=== PATIENT | female | born 1995 | race Caucasian/White ===

== ENCOUNTER 2020-09-14 10:37 | Emergency (ER) | payer OTHER, SELFPAY ==
[2020-09-14] VITALS (16 sets, daily range): BP systolic 100–125; BP diastolic 53–79; PULSE 73–93; RESP 18–28; TEMP 37; O2SAT 93–99
--- NOTE | ~2020-09-14 | XR_ITS ---
EXAMINATION: XR chest 2V DATE: 09/14/2020 10:49 INDICATION: Chest pain TECHNIQUE: PA and lateral views of the chest are obtained. COMPARISON: None available FINDINGS: The lungs are free of acute opacities. There is no pleural effusion or pneumothorax. The ca rdiomediastinal silhouette is normal. The visualized bones and soft tissues are unremarkable. IMPRESSION: 1. No acute cardiopulmonary abnormality. Reviewed, dictated and finalized at location B.
--- NOTE | 2020-09-14 10:39 | ECG_ITS ---
Measurements Intervals [place] Rate: 70 P: -1 MT: 134 QRS: -6 QRSD: 94 T: 17 QT: 390 QTc: 421 Interpretive Statements SINUS RHYTHM BORDERLINE R WAVE PROGRESSION, ANTERIOR LEADS CONSIDER INFERIOR INFARCT, AGE INDETERMINATE ABNORMAL ECG Electronically Signed On 09-14-2020 11:01:07 CDT by Cody Lewis D.O.
--- NOTE | 2020-09-14 10:51 | PC.NURSE ---
PT TAKEN TO XRAY PRIOR TO THE EKG WAS ABLE TO BE COMPLETED
[2020-09-14 11:15] LABS: Basophils Percent Auto 0.3 % (0.2-1.2); Eosinophils Absolute Auto 0.1 K/mm3 (0-0.3); Eosinophils Percent Auto 0.8 % (0-4.4); Hematocrit 38.6 % (37.0-47.0); Hemoglobin 12.1 g/dL (12.0-15.0); Immature Granulocyte Absolute 0.01 K/mm3 (0.00-0.031); Immature Granulocyte Percent A 0.2 % (0-0.5); Lymphocytes Absolute Auto 1.57 K/mm3 (0.9-3.2); Lymphocytes Percent Auto 25.3 % (18.3-44.2); Mean Corpuscular HGB Conc 31.3 g/dl (32-36); Mean Corpuscular Hemoglobin 26.7 pg (26-34); Mean Corpuscular Volume 85.2 fl (80-100); Monocytes Absolute Auto 0.5 K/mm3 (0.1-0.6); Monocytes Percent Auto 7.7 % (2.6-8.5); Neutrophils Absolute Auto 4.1 K/mm3 (1.3-6.7); Neutrophils Percent Auto 65.7 % (45.5-73.1); Platelet Count Result 280 k/mm3 (150-375); Red Blood Count 4.53 M/mm3 (4.2-5.4); Red Cell Distribution Width 13.7 % (11.5-14.5); White Blood Count 6.2 K/mm3 (4.5-10.0)
[2020-09-14 11:26] LABS: INR 0.9; Prothrombin Time 12.4 Seconds (11.1-14.7)
[2020-09-14 11:27] LABS: Anion Gap 8 mmol/L (8-16); Blood Urea Nitrogen 13 mg/dL (7-17); Calcium 9.3 mg/dL (8.4-10.2); Carbon Dioxide 27 mmol/L (22-30); Chloride 106 mmol/L (98-107); Estimated CRCL calculation 117 ml/min; Estimated Glomerular Filt Rate > 60; Glucose 108 mg/dL (65-110); Partial Thromboplastin Time 26.7 SECONDS (22.3-36.8); Potassium 4.3 mmol/L (3.4-5.0); Sodium 141 mmol/L (137-145)
[2020-09-14 11:39] LABS: Troponin I 0.014 ng/mL (0.000-0.034)
--- NOTE | 2020-09-14 12:34 | PC.NURSE ---
called lab and added on a D dimer talked to Brandy at [phone]
[2020-09-14] MEDS: LIDOCAINE HCL 2% VISC SOLN 15 ML UDC 20 ML PO (12:52)
[2020-09-14] MEDS: MAG HYDROX/AL HYDROX/SIMETH 30 ML UDC PO (12:52)
--- NOTE | 2020-09-14 13:07 | ED.GENADULT ---
HPI - General Adult General Chief complaint: Chest Pain Stated complaint: CHEST PAIN Time Seen by Provider: 09/14/20 11:12 Source: patient and RN notes reviewed Mode of arrival: ambulatory Limitations: no limitations History of Present Illness HPI narrative: Patient is a 25-year-old female who presents to emergency department for evaluation of left-sided chest discomfort worse with breathing that began in the early hours of the morning denies any URI symptoms notes yesterday she had felt fine denies any other complaints or symptoms or similar occurrence in the past patient does have a history of tobacco abuse and is currently on control which she has been on for 6 months. On arrival patient presents in no distress and is resting comfortably Related Data Allergies Allergy/AdvReac Type Severity Reaction Status Date / Time No Known Allergies Allergy Unverified 09/14/20 11:12 Review of Systems Review of Systems: All systems reviewed & are unremarkable except as noted in HPI and below PMFSH Family History Family History (Updated 09/23/15 @ 23:21 by DOCTOR UNKNOWN) Mother Family history of obesity Depression Hypertension Asthma Patient's mother is in good health Father Patient's father is in good health Sibling Patient's sister is in good health Patient's brother is in good health Other Diabetes mellitus Social History Social History Smoking status: Never smoker Alcohol intake: current Exam Narrative: Exam Narrative: GENERAL: Well-appearing, obese, and in no acute distress. HEAD: Normocephalic, atraumatic. EYES: PERRLA and EOMI. ENT: Nares clear, no rhinorrhea or epistaxis. Mucous membranes moist. CHEST: Clear to auscultation. No respiratory distress. No wheezes rales or rhonchi HEART: Regular rate and rhythm. No murmur heard. Normal peripheral pulses. ABDOMEN: Soft, nontender, nondistended EXTREMITIES: Normal range of motion. No edema. SKIN: Warm, dry, no rash. NEURO: No focal deficits. Alert and oriented x3. PSYCH: Normal mood and affect. Course Course Emergency Course: ABCs and vital signs intact and stable patient felt appropriate for outpatient reevaluation Vital Signs Vital signs: Vital Signs Temperature 98.6 F 09/14/20 11:09 Pulse Rate 80 09/14/20 11:09 Respiratory Rate 18 09/14/20 11:09 Blood Pressure 116/53 L 09/14/20 11:09 Pulse Oximetry 96 09/14/20 11:09 Temperature 98.6 F 09/14/20 11:09 Pulse Rate 80 09/14/20 12:50 Respiratory Rate 28 H 09/14/20 12:50 Blood Pressure 100/66 09/14/20 12:31 Pulse Oximetry 96 09/14/20 12:50 Medical Decision Making MDM Narrative Medical decision making narrative: Patients EKGs and labs are without significant high risk changes. Cardiac risk factors were reviewed. Patient is felt likely to be low risk for ACS and reasonable for further risk stratification testing as an outpatient. Pain was not sudden or maximal in onset without tearing or ripping. quality. No other signs or symptoms to suggest aortic dissection. A low-risk Wells criteria is noted. PE is felt to be unlikely. No pneumonia or URI symptoms were seen on evaluation today. Patient is felt to b reasonable for continued evaluation as an outpatient. Vital Signs Vital Signs: Vital Signs Temperature 98.6 F 09/14/20 11:09 Pulse Rate 80 09/14/20 11:09 Respiratory Rate 18 09/14/20 11:09 Blood Pressure 116/53 L 09/14/20 11:09 Pulse Oximetry 96 09/14/20 11:09 Temperature 98.6 F 09/14/20 11:09 Pulse Rate 80 09/14/20 12:50 Respiratory Rate 28 H 09/14/20 12:50 Blood Pressure 100/66 09/14/20 12:31 Pulse Oximetry 96 09/14/20 12:50 Lab Data Result diagrams: 09/14/20 11:05 09/14/20 11:05 Labs: Lab Results 09/14/20 09/14/20 09/14/20 Range/Units 11:05 11:05 11:05 WBC 6.2 (4.5-10.0) K/mm3 RBC 4.53 (4.2-5.4) M/mm3 Hgb
[2020-09-14 13:11] LABS: D Dimer 0.27 ug/mL (<0.48)
== END 2020-09-14 13:42 | disposition home or self-care (01) ==
PROVIDERS: Emergency Medicine Emergency Medical Services; Emergency Provider Emergency Medicine
DX: R07.9 Chest pain, unspecified (principal)
CPT/HCPCS: 36415; 71046; 80048; 84484; 85025; 85380; 85610; 85730; 93005; 96365; 99284; A9270; J0131

== ENCOUNTER 2020-11-08 13:00 | Emergency (ER) | payer OTHER, SELFPAY ==
[2020-11-08 13:10] VITALS: BP 124/84; PULSE 86; RESP 20; TEMP 37.2; O2SAT 98
--- NOTE | 2020-11-08 14:02 | ED.URI ---
HPI - URI/Sore Throat General Chief Complaint: Upper Respiratory Infection Stated Complaint: fever cough aches no smell or taste Time Seen by Provider: 11/08/20 13:45 Source: patient and RN notes reviewed Mode of arrival: ambulatory Limitations: no limitations History of Present Illness HPI Narrative: 25 year old female who presents to express care with complaints since Saturday diarrhea, fever, loss of taste and smell, body aches, chills and sore throat. Patient denies any acute shortness of breath, respirations are even and unlabored with SaO2 98%. She reports that the last day she worked was on Saturday.She works at [employer] but states she thinks that she may of been exposed to Covid by family member. Patient has not been vaccinated for COVID. MD elicited complaint: cough and sore throat Consistency: progressively worsening Description of mucous: clear Able to tolerate fluids by mouth: Yes Related Data Home Medications Medication Instructions Recorded Confirmed desogestrel-ethinyl estradiol tablet 11/08/20 11/08/20 [Apri] Allergies Allergy/AdvReac Type Severity Reaction Status Date / Time No Known Allergies Allergy Unverified 09/14/20 11:12 Review of Systems Review of Systems: CONSTITUTIONAL positive fever, chills, or sweats. EYES: Denies visual changes, redness, or discharge. ENT positive rhinorrhea, congestion, sore throat, no otalgia. CARDIOVASCULAR: Denies chest pain, palpitations, or edema. RESPIRATORY: Positive cough no acute dyspnea. GASTROINTESTINAL: Denies abdominal pain, nausea, vomiting, positive diarrhea. GENITOURINARY: Denies dysuria or hematuria. SKIN: Denies rash or itching. MUSCULOSKELETAL: Denies back pain, joint pain, or myalgia. NEUROLOGIC: Denies headache, numbness, or weakness. PSYCHIATRIC: Denies anxiety or depression. All systems reviewed & are unremarkable except as noted in HPI and below PMFSH Past Medical History Medical History (Updated 11/12/20 @ 15:23 by Aminah Owusu NP) Obesity Surgical History Surgical History (Updated 11/12/20 @ 15:23 by Aminah Owusu NP) Hx of cholecystectomy Family History Family History (Updated 09/23/15 @ 23:21 by DOCTOR UNKNOWN) Mother Family history of obesity Depression Hypertension Asthma Patient's mother is in good health Father Patient's father is in good health Sibling Patient's sister is in good health Patient's brother is in good health Other Diabetes mellitus Social History Social History (Updated 11/12/20 @ 15:20 by Aminah Owusu NP) Smoking status: Never smoker Alcohol intake: current Substance use: never Living arrangements: with family Gender identity (if verbalized by the patient): Female Comments At time of signature, agree with nursing past medical, surgical, social and family history. There is no relevant family history pertinent to the presenting complaint Exam Narrative: GENERAL: Well-appearing, well-nourished, and in no acute distress. HEAD: Normocephalic, atraumatic. EYES: PERRLA and EOMI. ENT: Nares red with clear rhinorrhea no epistaxis. Mucous membranes moist. TMs normal with good light reflex, throat red with no lesions or exudate no tonsillar enlargement NECK: Supple.no lymphadenopathy CHEST: Clear to auscultation. No respiratory distress.SAO2 98% on room air HEART: Regular rate and rhythm. No murmur heard. Normal peripheral pulses. ABDOMEN: Soft, nontender, nondistended, normal active bowel sounds. EXTREMITIES: Normal range of motion. No edema. SKIN: Warm, dry, no rash. NEURO: No focal deficits. Alert and oriented x3. Course Vital Signs Vital signs: Vital Signs Temperature 37.2 C 11/08/20 13:10 Pulse Rate 86 11/08/20 13:10 Respiratory Rate 20 11/08/20 13:10 Blood Pressure 124/84 11/08/20 13:10 Pulse Oximetry 98 11/08/20 13:10 Temperature 37.2 C 11/08/20 13:10 Pulse Rate 86 11/08/20 13:10 Respiratory Rate 11/08
== END 2020-11-08 14:15 | disposition home or self-care (01) ==
LOC: EXPBETH 13:03
PROVIDERS: Emergency Provider Registered Nurse
DX: U07.1 COVID-19 (principal)
CPT/HCPCS: 87426; 99212; C9803; G0463

== ENCOUNTER 2022-10-29 09:15 | Emergency (ER) | payer OTHER, SELFPAY ==
[2022-10-29 09:20] VITALS: BP 135/73; PULSE 94; RESP 20; TEMP 36.8; O2SAT 99
--- NOTE | 2022-10-29 09:39 | ED.URI ---
HPI - URI/Sore Throat General Chief Complaint: Upper Respiratory Infection Stated Complaint: Headache/Sore Throat/Cough Time Seen by Provider: 10/29/22 09:39 Source: patient Mode of arrival: ambulatory Limitations: no limitations History of Present Illness HPI Narrative: 27-year-old female presents with complaint of nasal congestion, sore throat, fatigue, body aches, chills and cough starting this morning. Patient reports recent COVID exposure. No chest pain or shortness of breath. Not taking any [id number] medications to treat her symptoms. Patient is here for COVID test, did not have any home test. All systems reviewed and negative except as noted above. Related Data Home Medications Medication Instructions Recorded Confirmed No Home Medications 10/29/22 10/29/22 Allergies Allergy/AdvReac Type Severity Reaction Status Date / Time No Known Allergies Allergy Verified 10/29/22 09:40 Review of Systems Review of Systems: CONSTITUTIONAL: Denies fever. Reports chills, or sweats. EYES: Denies visual changes, redness, or discharge. ENT: Reports rhinorrhea, congestion, sore throat. Denies otalgia. CARDIOVASCULAR: Denies chest pain, palpitations, or edema. RESPIRATORY: Denies cough or dyspnea. GASTROINTESTINAL: Denies abdominal pain, nausea, vomiting, or diarrhea. GENITOURINARY: Denies dysuria or hematuria. SKIN: Denies rash or itching. MUSCULOSKELETAL: Denies back pain, joint pain. Reports myalgia. NEUROLOGIC: Denies headache, numbness, or weakness. PSYCHIATRIC: Denies anxiety or depression. All other systems reviewed are negative, except as documented in HPI. [facility] Past Medical History Medical History (Updated 10/29/22 @ 10:01 by Anaya Christie NP) Obesity Surgical History Surgical History (Updated 11/12/20 @ 15:23 by Aminah Owusu NP) Hx of cholecystectomy Family History Family History (Updated 09/23/15 @ 23:21 by DOCTOR UNKNOWN) Mother Family history of obesity Depression Hypertension Asthma Patient's mother is in good health Father Patient's father is in good health Sibling Patient's sister is in good health Patient's brother is in good health Other Diabetes mellitus Social History Social History (Updated 11/12/20 @ 15:20 by Aminah L. Francoise, HOME EN[employer]PER[employer]) Smoking status: Never smoker Alcohol intake: current Substance use: never Living arrangements: with family Gender identity (if verbalized by the patient): Female Comments At time of signature, agree with nursing past medical, surgical, social and family history. There is no relevant family history pertinent to the presenting complaint. Exam Narrative: GENERAL: This is a well-nourished, well-developed patient, in no apparent distress. HEAD: normocephalic, atraumatic. EYES: PERRL. Sclera clear/white. Vision is grossly intact. EARS: External ears normal, auditory canals clear and without drainage, TMs normal without perforation. Hearing grossly intact. NOSE: External nose normal with clear nasal drainage, mild congestion. THROAT: Mucous membranes moist, posterior pharynx clear. NECK: Neck supple, non-tender without lymphadenopathy, masses or thyromegaly. CARDIOVASCULAR: Regular rate and rhythm without murmurs, gallops, or rubs. RESPIRATORY: Clear to auscultation. Breath sounds equal bilaterally. No wheezes, rales, or rhonchi. SKIN: warm, Dry, intact with no suspicious lesions or rash, good texture and turgor. NEURO: awake, alert, and oriented to person, place and time. There were no obvious focal neurologic abnormalities. EXTREMITIES: No joint tenderness, effusion, or edema noted. Course Course Level of Care: Express Care Visit Vital Signs Vital signs: Vital Signs Temperature 36.8 C 10/29/22 09:20 Pulse Rate 94 10/29/22 09:20 Respiratory Rate 20 10/29/22 09:20 Blood Pressure 135/73 10/29/22 09:20 Pulse Oximetry 99 10/29/22 09:20 Oxygen Delivery Room Air
== END 2022-10-29 10:04 | disposition home or self-care (01) ==
PROVIDERS: Emergency Provider Nurse Practitioner Family
DX: U07.1 COVID-19 (principal); E66.9 Obesity, unspecified; Z68.41 Body mass index [BMI] 40.0-44.9, adult
CPT/HCPCS: 87426; 99213; C9803; G0463

== ENCOUNTER 2023-01-09 16:50 | Emergency (ER) | payer OTHER, SELFPAY ==
[2023-01-09 16:58] VITALS: BP 140/83; PULSE 87; RESP 16; TEMP 36.6; O2SAT 100
--- NOTE | 2023-01-09 18:23 | ED.URI ---
HPI - URI/Sore Throat General Chief Complaint: Upper Respiratory Infection Stated Complaint: Cough/Headache/Light Headed Time Seen by Provider: 01/09/23 18:23 Source: patient, RN notes reviewed and old records reviewed Mode of arrival: ambulatory Limitations: no limitations History of Present Illness HPI Narrative: 27-year-old female who presents to had complaints of headache, cough, lightheadedness for the past 2 days denies any fever did have COVID 2022. Patient has taken Tylenol for her headache which she states has increased since she awake this morning. Patient denies any sore throat or ear pain. Patient reports that cough is non productive, denies any wheezing or any dyspnea.Patient reports no visual disturbances or any nausea or any vomiting or diarrhea.Patient works in day care setting with infants. MD elicited complaint: fever (feels lightheaded), cough and other (headache ,) Onset (ago): day(s) (2) Pain scale (0-10): 8 Able to tolerate fluids by mouth: Yes Treatments prior to arrival: acetaminophen Related Data Home Medications Medication Instructions Recorded Confirmed desogestrel 0.15 mg-ethinyl 1 tablet PO DAILY 01/09/23 01/09/23 estradiol 0.03 mg tablet (Apri) Allergies Allergy/AdvReac Type Severity Reaction Status Date / Time No Known Allergies Allergy Verified 01/09/23 17:32 Review of Systems Review of Systems: CONSTITUTIONAL: Denies malaise, chills, sweats, or fever. EYES: Denies visual changes, redness, or discharge. ENT: Reports rhinorrhea, congestion, sinus pain, no otalgia and no sore throat. CARDIOVASCULAR: Denies chest pain, palpitations, or edema. RESPIRATORY: Reports cough.? Denies dyspnea. GASTROINTESTINAL: Denies abdominal pain, nausea, vomiting, diarrhea SKIN: Denies rash or itching. MUSCULOSKELETAL: Denies myalgia. NEUROLOGIC: reports headache. All systems reviewed & are unremarkable except as noted in HPI and below PMFSH Past Medical History Medical History (Updated 01/10/23 @ 22:12 by Aminah Owusu NP) COVID-13 November 2022 Obesity Surgical History Surgical History (Updated 11/12/20 @ 15:23 by Aminah Owusu NP) Hx of cholecystectomy Family History Family History (Updated 09/23/15 @ 23:21 by DOCTOR UNKNOWN) Mother Family history of obesity Depression Hypertension Asthma Patient's mother is in good health Father Patient's father is in good health Sibling Patient's sister is in good health Patient's brother is in good health Other Diabetes mellitus Social History Social History (Updated 01/10/23 @ 22:11 by Aminah Owusu NP) Smoking status: Former smoker Alcohol intake: current Substance use: never Living arrangements: with family Gender identity (if verbalized by the patient): Female Comments At time of signature, agree with nursing past medical, surgical, social and family history. There is no relevant family history pertinent to the presenting complaint Exam Narrative: GENERAL: Well-appearing, well-nourished, and in no acute distress. HEAD: Normocephalic EYES: PERRLA, conjunctivae clear ENT: Nares clear, turbinates edematous and erythematous, clear discharge. Mucous membranes moist. TM pearly martin with dull light reflex bilaterally; no tragal tenderness. Oropharynx erythematous without lesions. Tonsils not enlarged and without exudate, no drooling, no hoarseness, no trismus, uvula midline. NECK: Supple. No lymphadenopathy CHEST: Clear to auscultation, breath sounds equal. No wheezing, rhonchi, rales, or stridor. No respiratory distress, speaks in full sentences.dry cough,SAO2 100% on room air HEART: Regular rate and rhythm. No murmur heard. SKIN: Warm, dry, no rash. NEURO: Alert and oriented x3. PSYCH: Normal mood and affect Course Course Emergency Course: Patient is aware of diagnosis, understands and agrees to treatment plan.? Anticipatory guidance gi
== END 2023-01-09 18:55 | disposition home or self-care (01) ==
PROVIDERS: Emergency Provider Registered Nurse
DX: J06.9 Acute upper respiratory infection, unspecified (principal); Z87.891 Personal history of nicotine dependence; Z20.822 Contact with and (suspected) exposure to COVID-19
CPT/HCPCS: 87081; 87426; 87804; 87880; 99213; C9803; G0463

== ENCOUNTER 2023-08-17 08:03 | Emergency (ER) | payer OTHER, SELFPAY ==
[2023-08-17 08:08] VITALS: BP 139/84; PULSE 95; RESP 18; TEMP 36.4; O2SAT 100
--- NOTE | 2023-08-17 08:13 | ED.URI ---
HPI - URI/Sore Throat General Chief Complaint: Upper Respiratory Infection Stated Complaint: Sore Throat/Cough Time Seen by Provider: 08/17/23 08:14 Source: patient, RN notes reviewed and old records reviewed Mode of arrival: ambulatory Limitations: no limitations History of Present Illness HPI Narrative: 28-year-old female to Express Care for complaint of Sore throat, cough, nasal congestion for 5 days. Patient has attempted to treat at home with Tylenol without relief. Patient endorses she is 4 months with uncomplicated . Patient denies fever, headache abdominal pain, GI complaints, shortness of breath, chest pain. Patient endorses bilateral ear discomfort, worse on left. respirations even and nonlabored. Patient able to speak in complete sentences without difficulty. Patient able to tolerate fluids by mouth. No signs of acute distress. Related Data Home Medications Medication Instructions Recorded Confirmed vit no.95-ferrous 1 tablet PO DAILY 08/17/23 08/17/23 fumarate 28 mg-folic acid 800 mcg tablet () Allergies Allergy/AdvReac Type Severity Reaction Status Date / Time No Known Allergies Allergy Verified 08/17/23 08:06 Review of Systems Review of Systems: All systems reviewed & are unremarkable except as noted in HPI and below Constitutional: Constitutional: Reports no additional constitutional complaints Eyes: Eyes: Reports no additional eye complaints ENT: Reports as per HPI, Reports nasal congestion and Reports sore throat Cardiovascular: Cardiovascular: Reports no additional cardiovascular complaints, Denies chest pain and Denies dyspnea Respiratory: Respiratory: Reports no additional respiratory complaints, Reports cough and Denies dyspnea Musculoskeletal: Musculoskeletal: Reports no additional musculoskeletal complaints Neurologic: Reports system reviewed and no additional complaints, except as documented Psychiatric: Psychiatric: Reports no additional psychiatric complaints COUNTS INCLUDE 234 BEDS AT THE [facility] Past Medical History Medical History COVID-13 November 2022 Obesity Surgical History Surgical History Hx of cholecystectomy Family History Family History Mother Family history of obesity Depression Hypertension Asthma Patient's mother is in good health Father Patient's father is in good health Sibling Patient's sister is in good health Patient's brother is in good health Other Diabetes mellitus Social History Social History Smoking status: Former smoker Alcohol intake: current Substance use: never Living arrangements: with family Gender identity (if verbalized by the patient): Female Comments At the time of my signature, I reviewed and agree with the nursing past medical, surgical, social, and family history. There is no relevant family history pertinent to the patient complaint. Exam Const: General: cooperative, healthy appearing, no acute distress, alert, tired appearing and well nourished Nutritional Appearance: well nourished Orientation/consciousness: patient oriented x3 Limitations: no limitations HENMT: Head: normal to inspection Ears: Abnormal EAC present erythema bilateral and edema and TM abnormal erythematous on the left, with fluid behind the TM bilateral and with loss of landmarks on the left Face/Nose/Sinus: Normal external nose present, Normal nares present, normal facial exam, No erythema and No edema Face and sinus: normal facial exam, no erythema and no edema Mouth: Yes Normal oral and palatal mucosa present Eyes: General: appearance normal, both eyes and all related structures Neck: Neck: normal visual inspection, full ROM and no meningeal signs Lymphatic: no lymphadenop
== END 2023-08-17 08:40 | disposition home or self-care (01) ==
PROVIDERS: Emergency Provider Nurse Practitioner Family
DX: O99.891 Other specified diseases and conditions complicating pregnancy (principal); H66.92 Otitis media, unspecified, left ear; Z3A.00 Weeks of gestation of pregnancy not specified; Z86.16 Personal history of COVID-19; Z87.891 Personal history of nicotine dependence
CPT/HCPCS: 87081; 87880; 99213; G0463